=== PATIENT | female | born 1970 | race Caucasian/White ===

== ENCOUNTER 2024-07-24 08:31 | Day surgery (SDC) | payer OTHER ==
[2024-07-15 17:20] VITALS: BMI 26.3
[~2024-07-24 08:31] MED LIST: LACTATED RINGERS SOLUTION 1,000 ML IV SCH; oxyCODONE HCL 5 MG TABLET PO PRN
[2024-07-24] MEDS ORDERED: BUPIVACAINE HCL/EPINEPHRINE/PF 30 ML VIAL IJ ONE (09:04)
[2024-07-24] MEDS ORDERED: EPINEPHrine 1:1,000 1,000 MCG/ML ML ONE (09:05)
[2024-07-24] MEDS ORDERED: METOCLOPRAMIDE HCL INJECTION 10 MG/2 ML VIAL ONE (09:18)
[2024-07-24] MEDS ORDERED: KETOROLAC TROMETHAMINE 30 MG/1 ML VIAL ONE (09:18)
[2024-07-24] MEDS ORDERED: ceFAZolin SODIUM 1 GM VIAL ONE (09:18)
[2024-07-24] MEDS ORDERED: DEXAMETHASONE SOD PHOSPHATE 4 MG/1 ML VIAL ONE (09:18)
[2024-07-24] MEDS ORDERED: ONDANSETRON 4 MG/2 ML VIAL ONE (09:18)
[2024-07-24] MEDS ORDERED: PROPOFOL 60 ML ONE (09:21)
[2024-07-24] MEDS ORDERED: MIDAZOLAM HCL 2 MG/2 ML SINGLE DOSE VIAL ONE ×2 (09:23→11:08)
[2024-07-24] MEDS ORDERED: ROPIVACAINE HCL/PF 100 MG/20 ML VIAL ONE (10:08)
[2024-07-24] MEDS ORDERED: ACETAMINOPHEN INJECTION 100 ML ONE (10:08)
[2024-07-24] MEDS: BUPIVACAINE 0.25% /EPI 1:200,000 10 ML VIAL NR ONE (11:47)
[2024-07-24 13:22] VITALS: RESP 16; TEMP 97.1
[2024-07-24] MEDS: oxyCODONE HCL 5 MG TABLET ONE (13:35)
[2024-07-24 14:59] VITALS: BP 121/64; PULSE 65
== END 2024-07-24 13:55 | disposition home or self-care (01) ==
LOC: FASU 08:31
PROVIDERS: ATTEND Orthopaedic Surgery
PROC: 0PB94ZZ Excision of Right Clavicle, Percutaneous Endoscopic Approach (ICD-10-PCS; principal; 2024-07-24 11:21)
PROC: 0RBJ4ZZ Excision of Right Shoulder Joint, Percutaneous Endoscopic Approach (ICD-10-PCS; 2024-07-24 11:21)
DX: M19.011 Primary osteoarthritis, right shoulder (principal); M75.51 Bursitis of right shoulder; M67.813 Other specified disorders of tendon, right shoulder
CPT/HCPCS: 94760; J0131